=== PATIENT | male | born 1950 | race Two or more races ===

== ENCOUNTER 2023-07-12 06:00 | Inpatient (IN) | payer OTHER ==
[2023-07-12] MEDS ORDERED: PROPOFOL 20 ML ONE ×2 (15:04→17:11)
[2023-07-12] MEDS ORDERED: MIDAZOLAM HCL 2 MG/2 ML SINGLE DOSE VIAL ONE (15:05)
[2023-07-12] MEDS ORDERED: ROCURONIUM BROMIDE 50 MG/5 ML SYRINGE ONE ×2 (15:05→18:03)
[2023-07-12] MEDS ORDERED: SODIUM CHLORIDE 0.9% P/F 10 ML VIAL IJ ONE ×2 (15:06→15:31)
[2023-07-12] MEDS ORDERED: ceFAZolin SODIUM 1 GM VIAL ONE (15:06)
[2023-07-12] MEDS ORDERED: CEFOXITIN SODIUM 2 GM IVPB ONE (15:16)
[2023-07-12] MEDS ORDERED: cefOXitin SODIUM 2 GM VIAL (RESTRICTED TO ID) IVPB ONE (15:33)
[2023-07-12] MEDS ORDERED: DEXAMETHASONE SOD PHOSPHATE 4 MG/1 ML VIAL ONE ×2 (15:34→17:44)
[2023-07-12] MEDS ORDERED: ONDANSETRON 4 MG/2 ML VIAL ONE ×2 (15:34→17:44)
[2023-07-12] MEDS ORDERED: ePHEDrine SULFATE 50 MG/1 ML AMPULE ONE (15:42)
[2023-07-12] MEDS ORDERED: BUPIVACAINE HCL/PF 0.25% (2.5MG/ML) 10 ML VIAL IJ ONE (15:56)
[2023-07-12] MEDS ORDERED: ONDANSETRON 4 MG/2 ML VIAL IVPUSH PRN ×2 (17:09→19:40)
[2023-07-12] MEDS ORDERED: SUCCINYLCHOLINE CHLORIDE 200 MG/10 ML SYRINGE ONE (17:11)
[2023-07-12] MEDS ORDERED: LACTATED RINGERS SOLUTION 1,000 ML IV SCH ×2 (17:15→19:40)
[2023-07-12] MEDS ORDERED: HYDROmorphone HCl 2 MG/ML VIAL ONE (17:17)
[2023-07-12] MEDS ORDERED: NEOSTIGMINE METHYLSULFATE 0.5 MG/1 ML - 10 ML MDV ONE (17:44)
[2023-07-12] MEDS ORDERED: KETOROLAC TROMETHAMINE 30 MG/1 ML VIAL ONE ×2 (17:44→21:28)
[2023-07-12] MEDS ORDERED: GLYCOPYRROLATE 0.2 MG/1 ML VIAL ONE (17:44)
[2023-07-12] MEDS ORDERED: morphine SULFATE 4 MG/ML VIAL IVPUSH PRN (18:43)
[2023-07-12] MEDS ORDERED: ACETAMINOPHEN INJECTION 100 ML IVPB ONE (21:28)
[2023-07-12] MEDS: ACETAMINOPHEN 500 MG TABLET (FP) PO SCH ×2 (21:33→21:45)
[2023-07-12] MEDS: KETOROLAC TROMETHAMINE 15 MG/ML VIAL IVPUSH SCH (21:36)
[2023-07-12] MEDS ORDERED: ACETAMINOPHEN 1000 MG/100 ML BAG IVPB ONE (21:45)
[2023-07-13] MEDS: ACETAMINOPHEN 500 MG TABLET (FP) PO SCH ×3 (01:17→11:59)
[2023-07-13] MEDS: KETOROLAC TROMETHAMINE 15 MG/ML VIAL IVPUSH SCH ×3 (03:29→15:03)
[2023-07-13 04:03] VITALS: RESP 18; BMI 24.1
[2023-07-13] MEDS ORDERED: ENOXAPARIN NA (PORCINE) 40 MG/0.4 ML DISP.SYRIN SQ SCH (10:00)
[2023-07-13] MEDS ORDERED: MULTIVITAMINS THER W-MINERALS COMBO TABLET (FP) PO SCH (10:00)
[2023-07-13] MEDS ORDERED: ASPIRIN 81 MG CHEWABLE TABLETS PO SCH (10:00)
[2023-07-13] MEDS ORDERED: LOSARTAN POTASSIUM 50 MG TABLET PO SCH (10:00)
[2023-07-13] MEDS ORDERED: VALSARTAN 160 MG TABLET PO SCH (10:00)
[2023-07-13 15:28] VITALS: BP 133/68; PULSE 60; TEMP 98
== END 2023-07-13 15:55 | disposition home or self-care (01) | DRG 328 ==
LOC: JASUSAT 06:00 → J2C 06:01 → UNDOADMIN 09:34 → J2C 09:34 → EDSTATUS 15:00 → J8W 22:53
PROVIDERS: ADMIT Surgery; ATTEND Surgery
PROC: 8E0W4CZ Robotic Assisted Procedure of Trunk Region, Percutaneous Endoscopic Approach (ICD-10-PCS; 2023-07-12)
PROC: 0DB64ZZ Excision of Stomach, Percutaneous Endoscopic Approach (ICD-10-PCS; principal; 2023-07-12 14:00)
DX: C49.A0 Gastrointestinal stromal tumor, unspecified site (principal); I10 Essential (primary) hypertension; I25.10 Atherosclerotic heart disease of native coronary artery without angina pectoris
CPT/HCPCS: 86850; 86900; 86901; 88307-TC; 88341-TC; 94010; 94760